=== PATIENT | male | born 1990 | race Caucasian/White ===

== ENCOUNTER 2017-08-23 21:40 | Emergency (ER) | payer BC ==
[~2017-08-23] VITALS: Ht 182.9 cm; Wt 97.7 kg
[2017-08-23 21:43] VITALS: BP 130/79; TEMP 98.1
[2017-08-23] MEDS ORDERED: CLARITIN 1010 MG/TAB PO (21:46)
[2017-08-23] MEDS ORDERED: NORCO 325 MG-7.1 TAB PO (23:25)
[2017-08-23 23:30] VITALS: PULSE 94
== END 2017-08-23 23:45 | disposition home or self-care (01) ==
LOC: COL.ER 21:40
DX: S96.912A Strain of unspecified muscle and tendon at ankle and foot level, left foot, initial encounter (principal); F17.210 Nicotine dependence, cigarettes, uncomplicated; X50.0XXA Overexertion from strenuous movement or load, initial encounter; Y93.44 Activity, trampolining